=== PATIENT | female | born 2000 | race Caucasian/White ===

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

== ENCOUNTER → 2018-01-05 | Outpatient (CLI) | payer OTHER ==
[~2018-01-05] MED LIST changes: -BUPIVACAINE 0.5 % 5 MG/1 ML MPF 30ML VIAL ONE; -BUPIVACAINE/EPINEPHRINE 0.5% MPF 1:200,000 30 ML VIAL ONE; -CLINDAMYCIN PHOS 150 MG/ML 2 ML VIAL IV SCH; -DEXAMETHASONE SOD INJ 4 MG/ML VIAL ONE; -EpHEDrine SULFATE 50MG/5ML SYR ONE; -FENTANYL CITRATE INJ 50 MCG/1 ML 2 ML VIAL ONE; -HYDR-5688 PO; -LACTATED RINGER'S 1000ML 1,000 ML IV SCH; -LIDOCAINE HCL 2% 2 ML VIAL (20MG/ML) ONE; -LIDOCAINE/EPINEPHRINE 1% INJ 50 ML VIAL ONE; -MIDAZOLAM HCL 1 MG/ML 2ML VIAL ONE; -ONDANSETRON INJ 2 MG/ML 2 ML VIAL IV PRN; -ONDANSETRON INJ 2 MG/ML 2 ML VIAL ONE; -OXYCODONE/ACETAMINOPHEN 5-325 TAB PO PRN; -PROPOFOL IV EMULSION 10 MG/ML 20 ML VIAL IV ONE; -SODIUM CHLORIDE 0.9% 1000ML 1,000 ML IV SCH; -SULF800T23 PO
--- NOTE | 2018-01-05 12:40 | DIAGNOSTIC IMAGING REPORT ---
PELVIS BILATERAL HIP 2 CLINICAL HISTORY: Chronic bilateral hip pain and locking. COMPARISON: None FINDINGS: Sacroiliac joints and symphysis pubis are intact. No fracture or suspicious lesion is identified on this exam. There is no evidence for avascular necrosis of the femoral heads. There is minimal osteophytosis the right hip. Hip joint spaces are preserved. IMPRESSION: 1. Minimal osteophytosis the right hip. Preserved bilateral hip joint spaces. 2. No fracture within the pelvis or hips. Electronically signed by: Dionicio Awad M.D. 01/05/2018 12:39 PM Dictated Date/Time: 01/05/2018 12:38 PM
== END | disposition home or self-care (01) ==
LOC: C.RDSM 14:07
PROVIDERS: ATTEND Family Medicine
DX: M25.551 Pain in right hip (principal); M25.552 Pain in left hip

== ENCOUNTER → 2018-01-06 | Outpatient (CLI) | payer OTHER ==
--- NOTE | 2018-01-06 14:54 | DIAGNOSTIC IMAGING REPORT ---
FLUOROSCOPICALLY GUIDED LEFT HIP ARTHROGRAM PRE-MRI CLINICAL HISTORY: Left hip pain COMPARISON STUDY: Conventional radiographic study dated 01/05/2018 FLUOROSCOPY TIME: 12 seconds. NUMBER OF FLUOROSCOPIC IMAGES: 1 FINDINGS: A timeout was performed. The risks the procedure were explained the patient and informed consent was obtained. The skin was anesthetized 1% lidocaine. A 25-gauge spinal needle was introduced into the joint space. A mixture of Optiray 300 and gadolinium was instilled. A single fluoroscopic spot image documents intra-articular location of the contrast. The patient's of the MRI suite for further evaluation. IMPRESSION: Successful left hip pre-MRI gadolinium arthrogram. Electronically signed by: Mic Higgins M.D. 01/06/2018 2:53 PM Dictated Date/Time: 01/06/2018 2:51 PM
--- NOTE | 2018-01-07 07:21 | DIAGNOSTIC IMAGING REPORT ---
MRI ARTHROGRAM OF THE LEFT HIP CLINICAL HISTORY: Left hip pain. Evaluate for labral tear/femoroacetabular impingement. COMPARISON STUDY: Pelvis and bilateral hip radiographs January 05, 2018. TECHNIQUE: Following a fluoroscopically guided left hip arthrogram and utilizing a 1.5 Edna magnet, multiplanar, multiecho imaging of the left hip was performed without intravenous contrast. FINDINGS: Alignment of the left hip is anatomic. There is no fracture. No marrow edema or marrow replacement is present. There is no evidence for avascular necrosis of the left femoral head. The ligamentum teres appears intact. No cartilage abnormality is identified. Musculature adjacent to the left hip is within normal limits. No abnormalities identified within visualized portions of the pelvis. There is indistinctness and irregularity of the anterior superior left acetabular labrum with suspected intrasubstance signal. This is shown best on sagittal image 12 of 24. Note is made of linear signal and contrast adjacent to the posterior inferior acetabulum labrum. This favors a sublabral foramen. This is shown best on coronal image 17 of 24. IMPRESSION: 1. Indistinctness and irregularity of the anterior superior acetabular labrum which favors a labral tear. 2. Contrast and linear signal adjacent to or within the posterior inferior acetabular labrum which favors a sublabral foramen. Electronically signed by: Dionicio Awad M.D. 01/07/2018 7:20 AM Dictated Date/Time: 01/06/2018 3:11 PM
== END | disposition home or self-care (01) ==
LOC: C.MRIBC 13:21
PROVIDERS: ATTEND Family Medicine
DX: M25.551 Pain in right hip (principal)

== ENCOUNTER → 2018-01-14 | Outpatient (CLI) | payer OTHER ==
[~2018-01-14] MED LIST changes: +GADAVIST IV PRN
--- NOTE | 2018-01-14 13:56 | DIAGNOSTIC IMAGING REPORT ---
R INJECTION HIP PRE MRI FLUOROSCOPY TIME: 19 seconds CLINICAL HISTORY: 17 years-old Female with HIP PAIN. Chronic right hip pain PROCEDURE: After obtaining written informed consent, the patient was placed supine on the fluoroscopy table. A suitable site for needle insertion was marked using fluoroscopic guidance. The right hip was prepped and draped in the usual sterile fashion. 1% lidocaine was used for skin, subcutaneous and deep soft tissue anesthesia. Under intermittent fluoroscopic guidance, a 22 gauge 2.5 inch spinal needle was inserted into the right femoral acetabular joint. A total of 14 cc of one-to-one mixture of dilute Magnevist (0.1 cc in 10 cc saline) and Optiray 300 were injected. The needle was then removed. There were no apparent complications. The patient was transported to MR for further imaging. IMPRESSION: Fluoroscopic-guided right hip arthrogram without immediate complication. The above report was generated using voice recognition software. It may contain grammatical, syntax or spelling errors. Electronically signed by: Agusto Ragland M.D. 01/14/2018 1:54 PM Dictated Date/Time: 01/14/2018 1:53 PM
--- NOTE | 2018-01-14 14:04 | DIAGNOSTIC IMAGING REPORT ---
MRI ARTHROGRAM OF THE RIGHT HIP CLINICAL HISTORY: Right hip pain. Evaluate for labral tear. COMPARISON STUDY: Pelvis and hip radiograph January 05, 2018. TECHNIQUE: Following a fluoroscopically guided right hip arthrogram and utilizing a 1.5 Edna magnet, multiplanar, multi echo imaging of the right hip was performed without intravenous contrast. FINDINGS: Alignment of the right hip is anatomic. No marrow edema or marrow replacement is present. No labral tear is identified. No cartilage abnormality is present. There is no evidence for avascular necrosis. The adjacent musculature is within normal limits. No abnormalities are identified within visualized portions of the pelvis. No mass or fluid collection is shown adjacent to the right hip. IMPRESSION: Unremarkable MRI arthrogram of the right hip. No labral tear identified. Electronically signed by: Dionicio Awad M.D. 01/14/2018 2:03 PM Dictated Date/Time: 01/14/2018 1:54 PM
== END | disposition home or self-care (01) ==
LOC: C.MRIBC 12:33
PROVIDERS: ATTEND Family Medicine
DX: M25.551 Pain in right hip (principal)